=== PATIENT | female | born 1990 | race Caucasian/White ===

== ENCOUNTER 2023-11-14 15:07 | Emergency (ER) | payer BC, SELFPAY ==
[2023-11-14 15:22] VITALS: BP 183/123; PULSE 97; RESP 20; TEMP 36.7; O2SAT 96
[2023-11-14 15:44] LABS: Bilirubin Negative (Negative); Blood Trace-intact (Negative); Clarity Clear (Clear); Glucose Negative (Negative); Ketones Negative (Negative); Leukocyte Esterase Negative (Negative); Nitrite Negative (Negative); Urobilinogen 0.2 mg/dL (Up to 0.2)
[2023-11-14 16:02] LABS: Bacteria Rare HPF (Negative); C & S Indicated? No; Crystals Negative HPF (Negative); Epithelial Cells Negative HPF (Negative); Mucus Negative (Negative); RBC 0-2 HPF (0-2); WBC 0-2 HPF (0-5)
--- NOTE | 2023-11-14 16:15 | ED.GENADUL_ITS ---
Discharge Plan Disposition Patient Disposition: Home Condition: Stable Discharge Details Clinical Impression: Abdominal pain Primary Care Provider: SINDI HSU ED Provider: Dwayne Malone Home Meds and New Rx's Prescriptions: New ondansetron 4 mg tablet,disintegrating 4 mg PO Q8H PRN (Reason: nausea and vomiting) Qty: 30 0RF Discharge Instructions Additional Instructions: Your blood work and CAT scan did not show any concerning findings at this time Follow-up with your primary care provider within a week if not improving If you feel more ill or have severe worsening of pain or persistent vomiting return to the emergency department for reevaluation HPI General Mode of arrival: ambulatory . Date/Time Provider Initiated Documentation: 11/14/23 15:07 . Limitations to Documentation: no limitations . Information obtained by: patient . History of Present Illness 32 year old F presents to the emergency department with the chief complaint of abdominal pain, described as moderate, Quality is described as stabbing and sharp, and is localized to the abdomen. Patient reports no radiation. and it has been constant. No relieving factors improve symptom(s), No exacerbating factors reported . Patient notes no other symptoms.; denies chest pain. Patient did receive the following treatments prior to arrival, none Related Data Home Medications Medication Instructions Recorded Confirmed ondansetron 4 mg disintegrating 4 mg PO Q8H PRN nausea and 11/14/23 tablet vomiting #30 tabs Previous Rx's Medication Instructions Recorded ondansetron 4 mg disintegrating 4 mg PO Q8H PRN nausea and 11/14/23 tablet vomiting #30 tabs Allergies Allergy/AdvReac Type Severity Reaction Status Date / Time No Known Allergies Allergy Unverified 11/14/23 15:26 General Stated Complaint: Abd Prob YONG: 3 Review of Systems All systems reviewed & are unremarkable except as noted in HPI and below Constitutional Constitutional: Denies chills, Denies fever(s) and Denies weakness Cardiovascular Cardiovascular: Denies chest pain and Denies dyspnea Respiratory Respiratory: Denies cough and Denies dyspnea Gastrointestinal Gastrointestinal: Reports abdominal pain, Reports nausea and Denies vomiting Genitourinary Genitourinary: Denies dysuria Musculoskeletal Musculoskeletal: Denies joint swelling Integumentary/Breasts Skin/Breast: Denies rash Neurologic Neurologic: Denies weakness Psychiatric Psychiatric: Denies depression Endocrine Endocrine: Denies cold intolerance and Denies heat intolerance Allergic/Immunologic Allergic/Immunologic: Denies urticaria Exam Const General: no acute distress Orientation: alert HENAZ Head: normal to inspection Ears: external ears normal General nose exam: external nose normal Mouth: moist mucous membranes Eyes General: appearance normal, both eyes and all related structures Neck Neck: normal visual inspection Resp Effort & Inspection: normal respiratory effort and able to speak in complete sentences Cardio Rate: regular rate GI Palpation: soft and tender Skin General skin exam: no rashes or lesions noted Neuro General: patient alert and patient oriented x3 Extrem General: normal to inspection Psych Mental Status: mental status grossly normal Course Vital Signs Vital signs: Vital Signs Temperature 36.7 C 11/14/23 15:22 Pulse 97 H 11/14/23 15:22 Respiratory Rate 20 11/14/23 15:22 Blood Pressure 183/123 H 11/14/23 15:22 Pulse Oximetry 96 11/14/23 15:22 Temperature 36.7 C 11/14/23 15:22 Temperature Source Skin 11/14/23 15:22 Pulse 97 H 11/14/23 15:22 Respiratory Rate 20 11/14/23 15:22 Respiratory Effort Normal, Non-Labored 11/14/23 15:26 Blood Pressure 183/123 H 11/14/23 15:22 Blood Pressure Position Sitting 11/14/23 15:22 Pulse Oximetry 96 11/14/23 15:22 Oxygen Delivery Method Room Air 11/14/23 15:22 Oxygen Flow Rate 0 11/14/23 15:22 Pain Level 6 11/14/23 15:22 Lab/Test Results Lab/Test Results: Laboratory Tests Range/Units 11/14/23 15:30 Urine Color (Yellow) Yellow Urine Clarity (Clear) Clear Urine pH (5-8) 6.0 Ur Specific [place] (1.005-1.025) 1.020 Urine Protein (Neg-Trace) mg/dL Negative Urine Ketones (Negative) mg/dL Negative Urine Blood (Negative) Trace-intact H Urine Nitrite (Negative) Negative Urine Bilirubin (Negative) Negative Urine Urobilinogen (Up to 0.2) mg/dL 0.2 Ur Leukocyte Esterase (Negative) Negative Urine RBC (0-2) HPF 0-2 Urine WBC (0-5) HPF 0-2 Ur Epithelial Cells (Negative) HPF Negative Urine Crystals (Negative) HPF Negative Urine Bacteria (Negative) HPF Rare Urine Mucus (Negative) Negative Ur Culture Indicated? No Urine Glucose (Negative) mg/dL Negative POC- Test(urine) Negative Medical Decision Making 32-year-old female who denies any significant past medical history and no prior abdominal surgeries comes in with abdominal pain since last night. She says she was making cookies when she started having some right upper quadrant cramping, sharp mid and upper abdominal pain. She denies any vomiting but has nausea, first, no to go to breathing. She is alert and is for an arrival, her abdomen is soft but is tender in the right upper, negative Galvan sign and also has periumbilical tenderness. No lower abdominal tenderness. Given location of pain we will proceed with CBC, CMP, lipase, and CT abdomen pelvis to evaluate for entities such as cholecystitis Labs have a white count of 13 otherwise unremarkable, patient vomited during for CT which was unreadable per radiology so second CT obtained after discussion with patient consented to have another CAT scan which was unremarkable. She feels significantly better has minimal periumbilical tenderness, no guarding or rebound. Given reassuring workup do not feel further imaging or testing indicated. She is stable for discharge will follow-up with her primary care provider if not improving within a week and return precautions given Differential Diagnosis Differential Diagnosis: Cholecystitis, pancreatitis, gastritis Imaging Data Radiologic Study: Attestation: I personally reviewed and interpreted this imaging study as follows: Imaging: CT Scan Radiologist's impression: No acute findings Lab Data Lab results reviewed: Yes I reviewed the patient's lab results. Quality:SDOH Health Related Social Needs: No Data to Display PFSH All Active Problems (Updated 11/14/23 @ 18:15 by Dwayne Malone MD) Abdominal pain (Acute) Social History Smoking risk assessment performed?: No
[2023-11-14] MEDS: Ketorolac 15 MG/ML VIAL IVP (16:34)
[2023-11-14] MEDS: Normal Saline 1,000 ML 1000 ML IV (16:35)
[2023-11-14] MEDS: Ondansetron 4 MG/2 ML VIAL IVP (16:35)
[2023-11-14 16:37] LABS: Abs Immature Grans 0.07 10^3/uL (0.0-0.06); Absolute Basophil Count 0.07 10^3/uL (0.0-0.2); Absolute Eosinophil Count 0.14 10^3/uL (0.0-0.7); Absolute Lymphocyte Count 2.89 10^3/uL (1.2-3.4); Basophils % 0.5 %; HCT 39.6 % (36.0-46.0); HGB 12.4 g/dL (11.2-15.7); Immature Grans % 0.5 %; Lymphocytes % 20.7 %; MCH 25.7 pg (27.0-33.0); MCHC 31.3 % (32.0-36.0); MCV 82 fL (80-95); MPV 9.1 fL (8.0-11.0); Monocytes % 3.7 %; Neutrophils % 73.6 %; Platelet Count 352 10^3/uL (130-400); RBC 4.82 10^6/uL (3.93-5.22); RDW 14.5 % (11.7-14.6); RDW-SD 43.6 fL; WBC 13.96 10^3/uL (4.4-10.8)
[2023-11-14 16:50] LABS: ALT 24 U/L (14-59); AST 15 U/L (15-37); Absolute Monocyte Count 0.52 10^3/uL (0.1-0.8); Absolute Neutrophil Count 10.27 10^3/uL (1.2-6.7); Albumin 3.4 g/dL (3.4-5.0); Alkaline Phosphatase 86 U/L (46-116); Anion Gap 9.2 mmol/L (3-11); BUN 13 mg/dL (7-18); Bilirubin, Direct 0.1 mg/dL (0.0-0.2); Bilirubin, Total 0.4 mg/dL (0.2-1.0); CO2 26.8 mmol/L (21.0-32.0); Calcium 9.4 mg/dL (8.5-10.1); Chloride 104 mmol/L (98-107); Estimated GFR 77.72 (mL/min/1.73m2); Glucose 81 mg/dL (74-106); Lipase 39 U/L (16-77); Magnesium 1.6 mg/dL (1.8-2.4); Potassium 3.8 mmol/L (3.5-5.1); Sodium 140 mmol/L (136-145)
[2023-11-14] MEDS: Normal Saline - Diluent 50 ML VIAL IJ ×2 (16:51→17:37)
[2023-11-14] MEDS: Omnipaque 350 MG/ML 100 ML BTL IJ ×2 (16:53→17:38)
[2023-11-14] MEDS: Normal Saline Flush 10 ML SYR IVP (16:59)
[2023-11-14] MEDS: Prochlorperazine 10 MG/2 ML VIAL IVP (17:25)
--- NOTE | 2023-11-14 17:41 | DI.CT_ITS ---
Exam(s) CT ABDOMEN PELVIS W EXAM: CT ABDOMEN PELVIS W CLINICAL HISTORY: mid and upper abdominal pain. TECHNIQUE: Imaging Protocol: Axial computed tomography images with coronal and sagittal reformatted images were created and reviewed CONTRAST MATERIAL: Intravenous: Omnipaque-350 100cc Oral: None COMPARISON: No exams were available for comparison FINDINGS: VISUALIZED LUNG BASES: No nodules nor pleural effusions evident. ABDOMEN: There is no ascites. LIVER: STIR steatosis. No discrete focal hepatic lesions. No dilated intrahepatic ducts. GALLBLADDER/BILIARY: No obvious gallbladder pathology. CBD is not dilated. PANCREAS: No evidence of pancreatic mass nor dilatation of the pancreatic duct. SPLEEN: Spleen is not enlarged. No obvious intrasplenic lesions. Splenic and portal veins are paten t. ADRENALS: There are no significant adrenal masses. KIDNEYS:No cysts evident. No solid renal masses. No calculi nor hydronephrosis.. ABDOMINAL AORTA: Abdominal aorta is not enlarged. LYMPH NODES:There is no retroperitoneal nor paraaortic adenopathy. ABDOMINAL WALL: No evidence of significant anterior abdominal wall nor inguinal hernia. GI: There is no evidence of bowel obstruction, free air, nor abscess. PELVIS: GI: No evidence of appendicitis.No evidence of sigmoid diverticulitis. LYMPH NODES: There is no intrapelvic nor inguinal adenopathy. REPRODUCTIVE: Uterus and ovaries appear age-appropriate fluid in the pelvis. URINARY BLADDER: No calculi nor obvious masses evident OSSEOUS: No fractures and no significant osseous lesions. IMPRESSION: 1. No obvious acute findings in the abdomen and pelvis. Called by myself to ER physician. RADIATION DOSE DELIVERED: 1,714.86mGy.cm Total DLP DATA REPOSITORY: All CT scans at this facility are submitted to the National Radiology Data Registry (NRDR) Dose Index Registry (DIR) with the [employer] [place] ([employer]). RADIATION OPTIMIZATION: All CT scans at this facility use at least one of these dose optimization te chniques: automated exposure control; mA and/or kV adjustment per patient size (includes targeted exa ms where dose is matched to clinical indication); or iterative reconstruction.
[2023-11-14 18:31] VITALS: BP 144/80; PULSE 97; RESP 16; TEMP 36.7; O2SAT 96
[2023-11-14 18:33] VITALS: BP 144/80; PULSE 97; RESP 16; TEMP 36.7; O2SAT 96
== END 2023-11-14 18:34 | disposition home or self-care (01) ==
PROVIDERS: Emergency Provider Emergency Medicine; PCP Family Medicine
DX: R10.11 Right upper quadrant pain (principal); R11.10 Vomiting, unspecified
CPT/HCPCS: 36415; 80053; 81025; 83690; 96361; 96374; 96375; 99285; 74177; 81003; 81015; 82248; 83735; 85025; 99284; J0780; J1885; J2405; J3490